=== PATIENT | male | born 1955 | race Caucasian/White ===

== ENCOUNTER 2020-10-06 14:49 | Outpatient (CLI) | payer MEDICARE, SELFPAY ==
[2020-10-06 18:05] LABS: Magnesium 0.5 mg/dL (1.7-2.3)
== END 2020-10-06 14:50 | disposition home or self-care (01) ==
LOC: LAB 14:55
PROVIDERS: Visit Provider Family Medicine
DX: E83.51 Hypocalcemia (principal)
CPT/HCPCS: 83735

== ENCOUNTER 2020-10-06 16:14 | Inpatient (IN) | payer MEDICARE, SELFPAY ==
[2020-10-06 16:22] VITALS: BP 135/73; PULSE 86; RESP 18; TEMP 36.6; O2SAT 98; BMI 33.5
[2020-10-06 17:03] LABS: Add Urine Microscopic? NO; Charge for UA Resulting for Rev
[2020-10-06 17:11] LABS: Protein Urine Neg (Negative); Urine Appearance Clear (CLEAR); Urine Color Yellow (Yellow); pH Urine 5 (5-7)
[2020-10-06 17:12] LABS: Bilirubin Urine Neg (Negative); Blood Urine Neg (Negative); Glucose Urine UA 4+ (Normal); Ketones Urine Negative (Negative); Leukocyte Esterase Urine Negative (Negative); Nitrate Urine Negative (Negative); Urobilinogen Urine 1 mg/dL (Negative)
--- NOTE | 2020-10-06 17:17 | ECG_ITS ---
[facility] Test Date: 2020-10-06 Pat Name: Filiberto Rosen Department: Room: Gender: Male Special Police: : 1955 Requested By: John Glover I Order Number: [id number] Mary MD: Mitchell Villarreal M.D. Measurements Intervals [place] Rate: 74 P: 46 NV: 169 QRS: 5 QRSD: 91 T: 31 QT: 380 QTc: 423 Interpretive Statements SINUS RHYTHM SEPTAL MYOCARDIAL INFARCTION , PROBABLY OLD [40+ ms Q WAVE IN V1/V2] No previous ECG available for comparison Electronically Signed On 10-07-2020 0:49:08 CDT by Mitchell Villarreal M.D. [id number]
[2020-10-06 17:42] LABS: Basophils # 0.1 10^3/uL (0.0-0.1); Basophils % 1.2 %; Eosinophils # 0.2 10^3/uL (0.0-0.8); Hematocrit 40.1 % (42.0-52.0); Hemoglobin 13.3 g/dL (11.7-16.6); Lymphocytes # 1.6 10^3/uL (0.8-4.8); Lymphocytes % 27.4 %; Mean Corpuscular HGB Conc 33.2 g/dL (30.0-36.0); Mean Corpuscular Hemoglobin 30.2 pg (28.0-34.0); Mean Corpuscular Volume 90.9 fL (80-94); Mean Platelet Volume 11.2 fL (7.4-10.4); Monocytes # 0.4 10^3/uL (0.2-0.9); Monocytes % 7.2 %; Neutrophils # 3.49 10^3/uL (1.8-7.7); Nucleated Red Blood Cells % 0 %; Platelet Count 286 10^3/cmm (130-400); Red Blood Count 4.41 10^6/uL (4.1-5.3); Red Cell Distribution Width 14.3 % (12.1-15.1); White Blood Count 5.8 10^3/uL (4.0-10.0)
--- NOTE | 2020-10-06 18:47 | W.ED.GENADLT ---
HPI - General Adult General: Chief complaint: General Medical Stated complaint: abnormal labs Time Seen by Provider: 10/06/20 16:57 Source: patient Mode of arrival: ambulatory Limitations: no limitations History of Present Illness: HPI narrative: This is a 65 year old male who was sent to the ED by his PCP for hypocalcemia. The patient states that about a week ago he had routine lab work done and his calcium was very low. Calcium was repeated again and was still low so he was advised to be seen in the emergency department for evaluation. The patient is asymptomatic. He denies any muscle aches, muscle pain, weakness, chest pain, difficulty breathing. Review of Systems General: Reports: 10 or more systems reviewed and unremarkable except in HPI and below Physical Exam Const: COMMON NORMALS: no acute distress, average body habitus, patient oriented x3, no limitations, healthy appearing, alert and well nourished HENMT: COMMON NORMALS: normocephalic, atraumatic and moist oral mucous membranes HEAD & SCALP: normocephalic and atraumatic Neck/C-Spine: COMMON NORMALS: no meningeal signs and no JVD Resp: COMMON NORMALS: normal respiratory effort, No retractions, No use of accessory muscles, clear to auscultation bilaterally and percussion normal AUSCULTATION: clear to auscultation bilaterally PERCUSSION: percussion normal Cardio: COMMON NORMALS: no JVD, regular rate, regular rhythm, S1 normal heart sound present, S2 normal heart sound present, No gallops present (Cardio), No clicks present (Cardio), No murmurs present (Cardio), No rub (Cardio) and Peripheral pulses 2+ throughout RATE: regular rate RHYTHM: regular rhythm HEART SOUNDS: S1 normal heart sound present and S2 normal heart sound present PERIPHERAL PULSES: Peripheral pulses 2+ throughout GI: COMMON NORMALS: Normal to inspection, nondistended, normoactive bowel sounds present, Soft to palpation, non-tender, No hepatosplenomegaly present, no masses and no bruits PALPATION: Yes Soft to palpation and Yes No hepatosplenomegaly present Extremity: COMMON NORMALS: normal to inspection, full ROM, capillary refill normal, no calf tenderness and no pedal edema Neuro: COMMON NORMALS: patient oriented x3 SENSORIUM/ORIENTATION: Yes alert MENINGEAL SIGNS: Yes no meningeal signs Skin: COMMON NORMALS: no rashes or lesions noted, no wounds, turgor normal, no jaundice, no petechiae and no mottling GENERAL SKIN EXAM: no rashes or lesions noted and turgor normal Course Reevaluation(s): Reevaluation #1: Discussed his lab findings with him, also discussed my conversation with his primary care provider as well as the hospitalist. Advised that he would benefit from hospital admission overnight and replacement of his electrolytes. He voiced understanding and is in agreement with the plan. Time: 20:25 Consultations: Consultation #1: Discussed the patient Dr. Conn, his primary care provider. Discussed his magnesium levels as well as his calcium levels. We agreed that he probably will be safer for the patient to be admitted to the hospital overnight and have his magnesium especially and also his calcium replaced. The primary care provider is concerned because 3 months ago his calcium was 9.6 and there is no indication as to why he is calcium dropped so much in 3 months. Time: 20:15 Consultation #2: Discussed the patient with Dr. Mills, hospitalist and he kindly accepted the patient to his service. Time: 20:20 Vital Signs: Vital signs: Vital Signs Temperature 97.9 F 10/06/20 21:33 Pulse Rate 72 10/06/20 21:57 Respiratory Rate 15 10/06/20 21:57 Blood Pressure 125/62 10/06/20 21:57 Pulse Oximetry 94 10/06/20 21:57 MDM - General Adult MDM Narrative: Medical decision making narrative: 65-year-old male with severe hypomagnesemia as well as hypocalcemia. Etiology is undetermined at this time. He is started on replacement of both and admitted to the hospital for an overnight stay for further replenishing of electrolytes and management of his symptoms. He is asymptomatic, has normal vital signs in the emergency department and has a normal EKG. Medical Records: Attestation: I reviewed the patient's medical records. Lab Data: Attestation: I reviewed the patient's lab results. Labs: Lab Results 10/06/20 10/06/20 10/06/20 Range/Units 16:45 17:30 17:30 WBC 5.8 (4.0-10.0) 10^3/ uL RBC 4.41 (4.1-5.3) 10^6/u L Hgb 13.3 (11.7-16.6) g/dL Hct 40.1 L (42.0-52.0) % MCV 90.9 (80-94) fL MCH 30.2 (28.0-34.0) pg MCHC 33.2 (30.0-36.0) g/dL RDW 14.3 (12.1-15.1) % Plt Count 286 (130-400) 10^3/c mm MPV 11.2 H (7.4-10.4) fL Neut % (Auto) 60.0 % Lymph % (Auto) 27.4 % [place] % (Auto) 7.2 % Eos % (Auto) 4.0 % Baso % (Auto) 1.2 % Neut # (Auto) 3.49 (1.8-7.7) 10^3/u L Lymph # (Auto) 1.6 (0.8-4.8) 10^3/u L [place] # (Auto) 0.4 (0.2-0.9) 10^3/u L Eos # (Auto) 0.2 (0.0-0.8) 10^3/u L Baso # (Auto) 0.1 (0.0-0.1) 10^3/u L Nucleated RBC % (a uto) 0 % Nucleated RBCs # 0.0 /100WBC Sodium Cancelled Potassium Cancelled Chloride Cancelled Carbon Dioxide Cancelled Anion Gap Cancelled BUN Cancelled Creatinine Cancelled GFR Calculation Cancelled Glucose Cancelled Calculated Osmolal ity Cancelled Calcium Cancelled Ionized Calcium Me as Cancelled Total Bilirubin Cancelled AST Cancelled ALT Cancelled Alkaline Phosphata se Cancelled Total Protein Cancelled Albumin Cancelled Globulin Cancelled PTH Intact (15-65) pg/mL Calcium (PTH Intac t) (8.5-10.5) mg/dL Urine Color Yellow (Yellow) Urine Appearance Clear (CLEAR) Urine pH 5 (5-7) Ur Specific Gravit y 1.010 (1.005-1.030) Urine Protein Neg (Negative) Urine Glucose (UA) 4+ H (Normal) Urine Ketones Negative (Negative) Urine Blood Neg (Negative) Urine Nitrate Negative (Negative) Urine Bilirubin Neg (Negative) Urine Urobilinogen 1 H (Negative) mg/dL Ur Leukocyte Venessa ase Negative (Negative) 10/06/20 10/06/2021 Range/Units 18:00 18:00 19:15 WBC (4.0-10.0) 10^3/ uL RBC (4.1-5.3) 10^6/u L Hgb (11.7-16.6) g/dL Hct (42.0-52.0) % MCV (80-94) fL MCH (28.0-34.0) pg MCHC (30.0-36.0) g/dL RDW (12.1-15.1) % Plt Count (130-400) 10^3/c mm MPV (7.4-10.4) fL Neut % (Auto) % Lymph % (Auto) % [place] % (Auto) % Eos % (Auto) % Baso % (Auto) % Neut # (Auto) (1.8-7.7) 10^3/u L Lymph # (Auto) (0.8-4.8) 10^3/u L [place] # (Auto) (0.2-0.9) 10^3/u L Eos # (Auto) (0.0-0.8) 10^3/u L Baso # (Auto) (0.0-0.1) 10^3/u L Nucleated RBC % (a uto) % Nucleated RBCs # /100WBC Sodium 143 Potassium 4.1 Chloride 102 Carbon Dioxide 31 H Anion Gap 14.1 BUN 13 Creatinine 1.2 GFR Calculation 60.4 L Glucose 57 L Calculated Osmolal ity 294 Calcium 6.1 L Ionized Calcium Me as 0.8 L Total Bilirubin 0.4 AST 35 ALT 25 Alkaline Phosphata se 78 Total Protein 8.6 Albumin 4.0 Globulin 4.6 PTH Intact 43.6 (15-65) pg/mL Calcium (PTH Intac t) 6.5 L (8.5-10.5) mg/dL Urine Color (Yellow) Urine Appearance (CLEAR) Urine pH (5-7) Ur Specific Gravit y (1.005-1.030) Urine Protein (Negative) Urine Glucose (UA) (Normal) Urine Ketones (Negative) Urine Blood (Negative) Urine Nitrate (Negative) Urine Bilirubin (Negative) Urine Urobilinogen (Negative) mg/dL Ur Leukocyte Venessa ase (Negative) EKG Data^: EKG 1: Attestation: I personally reviewed and interpreted this EKG as follows: EKG interpretation date: 10/06/20 EKG interpretation time: 19:04 Prior EKG tracings: not available for review Interpretation: Sinus rhythm. Heart rate [address] changes. QTC not prolonged. Critical Care Time Critical Care Time: Critical Care Time: Yes Total Critical Care Time: 30 Attestation: This case had a high probability of a clinically significant, sudden, or life threatening deterioration of this patient's condition which required my full and direct attention, intervention and personal management. Discharge Plan Discharge Patient Disposition: Placed in Observation Admit Provider: Pierre Mills Clinical Impression: Hypocalcemia, Hypomagnesemia Coding Level of Care Code ED Retail Associate for Chg Fwd Exam Comprehensive
[2020-10-06 18:58] LABS: Calcium 6.5 mg/dL (8.5-10.5); Parathyroid Hormone 43.6 pg/mL (15-65)
[2020-10-06 19:05] LABS: Alanine Aminotransferase 25 U/L (0-41); Alkaline Phosphatase 78 IU/L (40-130); Anion Gap 14.1 (5-19); Aspartate Amino Transferase 35 U/L (0-40); Blood Urea Nitrogen 13 mg/dL (8-23); Calcium 6.1 mg/dL (8.5-10.5); Carbon Dioxide 31 mmol/L (22-29); Chloride 102 mmol/L (98-107); Globulin 4.6 g/dL (1.3-4.6); Glomerular Filtration Rate 60.4 mL/min (90-130); Glucose 57 mg/dL (65-115); Osmolality Calculated 294 mOsm/kg (285-295); Potassium 4.1 mmol/L (3.5-5.1); Sodium 143 mmol/L (136-145); Total Bilirubin 0.4 mg/dL (0.15-1.2); Total Protein 8.6 g/dL (6.6-8.7)
[2020-10-06 19:23] LABS: Ionized Calcium 0.8 mmol/L (1.1-1.4)
[2020-10-06] MEDS: magnesium sulfate premix 2 GM/50 ML PIGGYBACK IV (19:48)
[2020-10-06 19:55] VITALS: PULSE 75; RESP 17
--- NOTE | 2020-10-06 20:35 | ECG_ITS ---
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 Measurements Intervals [place] Rate: 73 P: 44 [place]: 165 QRS: 9 QRSD: 86 T: 6 QT: 391 QTc: 431 Interpretive Statements SINUS RHYTHM Compared to ECG 10/06/2020 19:03:58 Myocardial infarct finding no longer present Electronically Signed On 10-08-2020 6:56:57 CDT by Digna Dennis M.D. [id number] f
[2020-10-06 21:02] VITALS: BP 125/62; PULSE 72; RESP 15; O2SAT 94
[2020-10-06 21:33] VITALS: BP 151/79; PULSE 74; RESP 17; TEMP 36.6; O2SAT 95
--- NOTE | 2020-10-06 21:41 | PM.HP ---
Providers/Chief Complaint Admitting Physician: Pierre Mills Primary Care Provider: Sen Brannon MD Chief Complaint: abnormal labs History of Present Illness Filiberto Rosen is a 65 year old male with past medical history of hypertension, diabetes, dyslipidemia who was found to have hypocalcemia during most recent regular checkup and was sent by his PCP to emergency room for IV replacement. The patient denies any active complaints. Denies any weakness or dizziness, denies lightheadedness, convulsions, muscle twitches or weakness, chest pain or palpitations, nausea or vomiting, diarrhea. His calcium level and magnesium level were significantly decreased. Please see his labs. He received 1 g of calcium gluconate and 2 g of magnesium sulfate in the emergency room. Being admitted for observation. Review of Systems General: Reports: 10 or more systems reviewed and unremarkable except in HPI and below Medications/Allergies Home Medications Medication Instructions Recorded Confirmed Last Taken Type Fish Oil 3,000 mg PO BID@1000,2200 10/06/20 10/06/20 10/06/20 History amlodipine 5 mg PO DAILY@1000 10/06/20 10/06/20 10/06/20 History aspirin [Aspir-81] 81 mg PO DAILY@1000 10/06/20 10/06/20 10/06/20 History atorvastatin 80 mg PO BEDTIME@2230 10/06/20 10/06/20 10/05/20 History carvedilol 12.5 mg PO DAILY@1000 10/06/20 10/06/20 10/06/20 History dapagliflozin [Farxiga] 10 mg PO DAILY@1000 10/06/20 10/06/20 10/06/20 History ergocalciferol (vitamin D2) 1,250 mcg PO DAILY@1000 10/06/20 10/06/20 10/06/20 History gemfibrozil 600 mg PO BID@1000,2230 10/06/20 10/06/20 10/06/20 History hydrochlorothiazide 12.5 mg PO DAILY@1000 10/06/20 10/06/20 10/06/20 History insulin glargine [Lantus Solostar 70 unit SUBCUT BID@1000,2200 10/06/20 10/06/20 10/06/20 History U-100 Insulin] insulin lispro [Humalog KwikPen See Rx Instructions .ROUTE .COMPLEX 10/06/20 10/06/20 10/06/20 History Insulin] liraglutide [Victoza 3-Abdulkadir] See Rx Instructions .ROUTE .COMPLEX 10/06/20 10/06/20 10/05/20 History loratadine [Claritin] 10 mg PO DAILY@1000 10/06/20 10/06/20 10/06/20 History omeprazole 40 mg PO DAILY@1000 10/06/20 10/06/20 10/06/20 History potassium chloride 20 meq PO BID@1000,2200 10/06/20 10/06/20 10/06/20 History valsartan-hydrochlorothiazide 1 tab PO DAILY@1000 10/06/20 10/06/20 10/06/20 History Allergies Allergy/AdvReac Type Severity Reaction Status Date / Time No Known Allergies Allergy Verified 10/06/20 16:25 Vitals/I&O/Wt Last Vital Signs Temp 97.8 F 10/06/20 16:22 Pulse 72 10/06/20 21:02 Resp 15 10/06/20 21:02 BP 125/62 10/06/20 21:02 Pulse Ox 94 10/06/20 21:02 Weight last 48 hrs Weight 108.862 kg Physical Exam Narrative: EXAM NARRATIVE: Awake alert oriented. No acute distress. Mood and affect are appropriate. Responses are adequate. Skin is warm and dry. Moist extremities Eyes PERRL, extraocular muscles are intact Neck supple. No JVD Lungs clear to auscultation bilaterally. No wheezes or crackles Heart S1, S2, regular Abdomen soft, nontender, bowel sounds are present Extremities no edema sinus or calf tenderness bilaterally. No tremors or muscle twitches. Neuro. No focal deficits. Normal speech. Cranial nerves II through XII are grossly intact. Data : 10/06/20 17:30 10/06/20 18:00 A&P Additional A&P Information 65-year-old male with past medical history of hypertension, diabetes, dyslipidemia who is sent by his PCP for replacement of calcium which was found to be very low by the PCP. In emergency room he also has hypomagnesemia. A symptomatic. Hypocalcemia and hypomagnesemia. Replaced in the emergency room. We will continue monitoring him. We will recheck it in the morning. Will replace more if needed. We will hold his home diuretics and PPI. We will check his TSH, phosphorus level, vitamin D level. Hypoglycemia. Mild a symptomatic. Continue close monitoring. We will resume his home medications tomorrow. We will check his A1c level. DVT prophylaxis. Teds and SCDs. No anticoagulation because he is ambulating freely in the room. Hypertension. Well-controlled. Continue current management. CODE STATUS. He wants to be full code. Attestations Medical Necessity Statement*: Observation Coding Level of Care Code Acute Melter Supervisor Electric Arc Furnace for Stefan Soriano
[2020-10-06 21:57] VITALS: BP 125/62; PULSE 72; RESP 15; O2SAT 94
[2020-10-06 22:17] LABS: Glucose Point of Care 123 mg/dL (70-110)
[2020-10-06] MEDS: gemfibrozil 600 mg Tablet PO (22:56)
[2020-10-06] MEDS: omega-3 fatty acids 1,000 mg Capsule 3000 MG PO (22:56)
[2020-10-06 23:50] VITALS: BP 128/68; PULSE 81; RESP 16; TEMP 36.6; O2SAT 96
--- NOTE | 2020-10-07 | CT_ITS ---
WS: [id number] CT LUMBAR SPINE TECHNIQUE: Noncontrast CT of the lumbar spine with coronal and sagittal reformatted images. CLINICAL INFORMATION: OSTEOBLASTIC COMPARISON: None. DLP: 2504.[address] scans at [facility] use at least one of these dose optimization techniques: automat ed exposure control; mA and/or kV adjustment per patient size (includes targeted exams where dose is matched to clinical indication); or iterative reconstruction. FINDINGS: Mild lumbar curve. No acute compression. Disc osteophyte complex worse L5-S1 with moderate central c anal stenosis. Impingement on the left S1 nerve root. L1-L2: Normal. L2-L3: Mild disc bulging with mild central canal stenosis. Small central protrusion. Mild bilateral f oraminal narrowing. Moderate facet arthropathy. L3-L4: Mild annular bulging with mild central canal stenosis. Narrowing of the subarticular recess bi laterally. Mild bilateral foraminal narrowing. Moderate facet arthropathy. L4-L5: Mild disc bulging with mild central canal stenosis. Moderate facet arthropathy. Mild left and moderate right bony foraminal narrowing. Moderate facet arthropathy. L5-S1: Left pericentral disc osteophyte protrusion with moderate central canal stenosis. Impingement on the traversing left greater than right S1 nerve roots. Severe bilateral foraminal narrowing. Moder ate facet arthropathy. Visualized pelvic bony structures: Normal. Paravertebral soft tissues: Normal. CT/CT lumbar spine wo con* [id number] IMPRESSION: 1. Left pericentral disc osteophyte protrusion L5-S1 impinges the traversing l eft greater than right S1 nerve roots. Moderate central canal stenosis. 2. Moderate to severe bilateral L5-S1 bony foraminal narrowing. 3. Mild central canal stenosis L2-L3 L3-L4 and L4-L5. 4. Moderate right L4-5 bony foraminal narrowing.
[2020-10-07 00:49] LABS: 25 Hydroxy Vitamin D 57 ng/mL (30-100); Phosphorus 3.4 mg/dL (2.5-4.5)
[2020-10-07 04:00] VITALS: BP 129/71; PULSE 74; RESP 17; TEMP 36.8; O2SAT 95
[2020-10-07 04:56] LABS: Ionized Calcium 0.8 mmol/L (1.1-1.4)
[2020-10-07 06:31] LABS: Glucose Point of Care 60 mg/dL (70-110)
[2020-10-07 06:49] LABS: Estmated Average Glucose 103; Hemoglobin A1C 5.2 % (4.0-6.0)
[2020-10-07 06:50] LABS: Blood Urea Nitrogen 14 mg/dL (8-23); Calcium 6.5 mg/dL (8.5-10.5); Carbon Dioxide 28 mmol/L (22-29); Chloride 101 mmol/L (98-107); Glomerular Filtration Rate 66.8 mL/min (90-130); Glucose 45 mg/dL (65-115); Osmolality Calculated 292 mOsm/kg (285-295); Phosphorus 4.1 mg/dL (2.5-4.5); Sodium 142 mmol/L (136-145); Thyroid Stimulating Hormone 1.48 uIU/mL (0.27-4.20)
[2020-10-07 07:19] LABS: Magnesium 0.9 mg/dL (1.7-2.3)
[2020-10-07 07:47] VITALS: BP 116/68; PULSE 86; RESP 18; TEMP 36.7; O2SAT 93
--- NOTE | 2020-10-07 09:24 | PC.CHAP ---
Pastoral Care Encounter/Spiritual Assessment Type of Contact [] Declined field research associate visit [] Patient/Family/Request visit [] Outpatient visit [] Follow-up visit [] Physician referral [] Code/Alert []x Routine visit [] Staff referral [] Actively dying [] Patient sleeping [] Family support [] [] Out of room [] Palliative care [] [] Receiving care in room [] Pre-surgical visit [] Trauma [] Long length of stay [] ICU visit [] Other: Relational/Emotional Strength [] Patient feels connected with others/family/visitors/staff [] Distress [] Loneliness/isolation [] Abandonment Spirituality of Patient [x] Person of [place] [] Attends Scientology of their [place] [] Believes in Prayer [] Reads Bible or Gnosticist materials [] There are Spiritual issues to be addressed Tower Watchman Interventions [x] Prayer [x] Active listening [x] Non-anxious presence [] Spiritual/emotional support [] Crisis/trauma care [] Spiritual counseling [] Bereavement support [] Provided bereavement packet [] Provided Bible/devotional materials [] Provided toy/stuffed animal, coloring book to patient or family member [] Provided Communion [] Anointing/[place] [] Salvation [] Completed spiritual assessment [] Other: Impact on Illness or Injury [] Angry [] Fearful [] Anxious [] Often cries [] Exhaustion [] Unable to work [] Unable to attend jewish [] Unable to walk/stand [] Unable to read [] Unable to drive [] Unable to eat/drink [] Unable to sleep [] Unable to be with family [] Patient intubated [] Other: Summary patient has bad head ache feelsl like hes been ran over buy a truck Time spent with patient 10 min
[2020-10-07] MEDS: amlodipine 5 mg Tablet PO (10:01)
[2020-10-07] MEDS: omega-3 fatty acids 1,000 mg Capsule 3000 MG PO ×2 (10:01→21:31)
[2020-10-07] MEDS: aspirin 81 mg EC Tablet PO (10:01)
[2020-10-07] MEDS: loratadine 10 mg Tablet PO (10:01)
[2020-10-07] MEDS: gemfibrozil 600 mg Tablet PO ×2 (10:01→21:31)
[2020-10-07] MEDS: carvedilol 12.5 mg Tablet PO (10:01)
[2020-10-07 11:03] LABS: Glucose Point of Care 150 mg/dL (70-110)
--- NOTE | 2020-10-07 11:48 | CT_ITS ---
WS: [id number] CT ABDOMEN PELVIS TECHNIQUE: Contrast-enhanced CT of the abdomen and pelvis with coronal and sagittal reformatted image s. CLINICAL INFORMATION: possible adrenal mass COMPARISON: CT 5 14,015 DLP: 2536.[address] scans at [facility] use at least one of these dose optimization techniques: automat ed exposure control; mA and/or kV adjustment per patient size (includes targeted exams where dose is matched to clinical indication); or iterative reconstruction. FINDINGS: Mild diffuse fatty infiltration liver. Normal portal vein and splenic vein. Normal GE junction. Rani l spleen. Lung bases are well aerated. Fatty atrophy of the pancreas. Adrenal glands are normal. Norm al renal parenchymal enhancement. Renal cortical atrophy. No hydronephrosis. Left renal cyst measurin g 11 mm. Normal caliber abdominal aorta. Aortic calcification. Heterogeneous nodular markedly enlarged prostate with indentation on the bladder. Prostate measures a pproximately 5.6 x 5.3 CM. Recommend correlation PSA. Thickening of the seminal vesicles bilaterally. Mild bladder wall thickening. No pelvic lymphadenopathy. No abdominal or inguinal lymphadenopathy. Fat-containing umbilical hernia. No evidence of small large bowel obstruction. CT/CT abdomen pelvis w con* [id number] IMPRESSION: 1. Markedly enlarged heterogeneous nodular prostate measuring 5.6 x 5.3 cm wit h indentation on the bladder suspicious for neoplasia. Recommend correlation PS A. Associated thickening of the seminal vesicles. 2. No abdominal, pelvic, or inguinal lymphadenopathy. 3. Both adrenal glands are normal. 4. Left renal cyst measuring 11 mm. 5. Diffuse fatty infiltration of the liver. 6. Normal caliber abdominal aorta.
[2020-10-07 11:50] VITALS: BP 119/74; PULSE 90; RESP 18; TEMP 36.9; O2SAT 95
--- NOTE | 2020-10-07 11:58 | P.PN_ITS ---
Subjective Subjective: Interval history: Admitted overnight. H&P labs noted. Patient hypoglycemic early in the morning today. Has remained afebrile hemodynamically stable saturating well on room air. Denies any nausea vomiting, headache. Patient sitting comfortably in bed during examination. Denies any nausea vomiting, headache. Vitals/I&O/Wt Last Vital Signs Temp 98.5 F 10/07/20 11:50 Pulse 90 10/07/20 11:50 Resp 18 10/07/20 11:50 BP 119/74 10/07/20 11:50 Pulse Ox 95 10/07/20 11:50 10/06/20 10/07/20 10/07/20 22:59 06:59 14:59 Intake Total 230 / 230 120 / 120 Balance 230 / 230 120 / 120 Weight last 48 hrs Weight 108.862 kg Physical Exam Narrative: EXAM NARRATIVE: Awake alert oriented. No acute distress. Mood and affect are appropriate. Responses are adequate. Skin is warm and dry. Moist extremities Eyes PERRL, extraocular muscles are intact Neck supple. No JVD Lungs clear to auscultation bilaterally. No wheezes or crackles Heart S1, S2, regular Abdomen soft, nontender, bowel sounds are present Extremities no edema sinus or calf tenderness bilaterally. No tremors or muscle twitches. Neuro. No focal deficits. Normal speech. Cranial nerves II through XII are grossly intact. Data : 10/06/20 17:30 10/07/20 04:25 A&P Assessment and plan (1) Hypocalcemia: Status: Acute (2) Hypomagnesemia: Status: Acute (3) Hyperlipidemia: Status: Acute (4) Hypoglycemia: Status: Acute (5) Hypokalemia: Status: Acute (6) Type 2 diabetes mellitus: Status: Acute (7) Hypertension: Status: Acute (8) COPD (chronic obstructive pulmonary disease): Status: Acute Additional A&P Information 65-year-old male with past medical history of hypertension, diabetes, dyslipidemia who is sent by his PCP for replacement of calcium which was found to be very low by the PCP. In emergency room he also has hypomagnesemia. A symptomatic. Hypocalcemia and hypomagnesemia: Continues to remain persistently low. Albumin level normal. Low PTH Replete magnesium 4 g IV, calcium 2 g slowly. Given patient having multiple episodes of hypoglycemia overnight will do CT abdomen pelvis with contrast to rule out adrenal mass or any other signs of cancer. Check PSA. Further etiologies of hypercalcemia with hyperparathyroidism we will check ESR, CRP, cortisol level, copper level, ferritin, TIBC, lipase, iron level. Continue to hold off on home diuretics and PPIs. TSH and phosphorus levels within normal limits. Vitamin D levels awaited. Hypoglycemia with history of type 1 diabetes mellitus: HbA1c 5.2. At home patient is on Victoza, glargine 70 twice daily, lispro. For now check glucose before meals and at bedtime. Sliding scale at mild protocol. Hold off on Victoza and glargine. Hypertension: Goal blood pressure less than 140/90 mmHg. Continue with amlodipine 5 mg. If needed will go up on the medications for now blood pressures have been stable. Full code. Regular diet. Heparin for DVT prophylaxis. As patient continues to require hypoglycemia, hypokalemia, hypocalcemic and hypomagnesia will change admission to inpatient as patient is requiring multiple IV treatment. Attestations Medical Necessity Statement*: Patient requires further hospitalization for management of severe hypocalcemia, hypomagnesemia, hypoglycemia requiring multiple IV medications Time Spent in Patient Care: Greater than 35 minutes (>than 50% of time spent in counselling and/or direct pt care on unit) . Coding Level of Care Code Acute Cardiac Monitor for Chg Fwd Diagnoses Hypocalcemia E83.51 Hypomagnesemia E83.42 Hyperlipidemia E78.5 Hypoglycemia E16.2 Hypokalemia E87.6 Type 2 diabetes mellitus E11.9 Hypertension I10 COPD (chronic obstructive pulmonary disease) J44.9
[2020-10-07] MEDS: magnesium sulfate premix 4 GM/100 ML PREMIX IV (12:25)
[2020-10-07 12:39] LABS: C Reactive Protein 13.2 mg/L (0.0-4.9); Ferritin 332 ng/mL (30-400); Iron 60 ug/dL (59-158); Lipase 19 U/L (13-60); Percent Saturation 21.2 % (20-50); Total Iron Binding Capacity 283 mcg/dl; Unsaturated Iron Binding 223 ug/dL (112-347)
[2020-10-07] MEDS: iohexol 300 mg/mL 100 mL Btl IV (12:41)
[2020-10-07 12:54] LABS: HIV 1 & 2 Antibody Non-Reactive (Non-Reactiv); HIV 1 & 2 Antigen Non-Reactive (Non-Reactiv)
[2020-10-07 13:33] LABS: Erythrocyte Sedimentation Rate 42 mm/hr (0-10)
[2020-10-07 14:58] LABS: Cortisol Random 15.97 ug/dL (2.47-19.5)
[2020-10-07 15:59] VITALS: BP 132/73; PULSE 69; RESP 18; TEMP 36.8; O2SAT 96
[2020-10-07 17:07] LABS: Glucose Point of Care 170 mg/dL (70-110)
[2020-10-07 19:16] VITALS: BP 133/71; PULSE 80; RESP 18; TEMP 36.7; O2SAT 95
[2020-10-07 20:23] LABS: Glucose Point of Care 163 mg/dL (70-110)
[2020-10-07] MEDS: atorvastatin 40 mg Tablet 80 MG PO (21:33)
[2020-10-07 21:39] LABS: Calcium 7.2 mg/dL (8.5-10.5); Magnesium 1.9 mg/dL (1.7-2.3); Phosphorus 2.9 mg/dL (2.5-4.5); Potassium 3.5 mmol/L (3.5-5.1)
[2020-10-07 23:45] VITALS: BP 129/69; PULSE 81; RESP 16; TEMP 36.8; O2SAT 94
[2020-10-08 03:50] VITALS: BP 123/67; PULSE 74; RESP 18; TEMP 36.9; O2SAT 94
[2020-10-08 06:44] LABS: Glucose Point of Care 160 mg/dL (70-110)
[2020-10-08 06:44] LABS: Chol HDL Ratio 5.05 mg/dL (1.0-5.00); Cholesterol 101 mg/dL (0-200); HDL Cholesterol 20 mg/dL (60-100); LDL Cholesterol Calculated 55 mg/dL (50-129); Triglycerides 130 mg/dL (0-150); VLDL Cholestrol Calculation 26 mg/dL (0-30)
[2020-10-08 07:24] VITALS: BP 124/69; PULSE 85; RESP 18; TEMP 36.9; O2SAT 92
[2020-10-08] MEDS: gemfibrozil 600 mg Tablet PO (09:05)
[2020-10-08] MEDS: carvedilol 12.5 mg Tablet PO (09:05)
[2020-10-08] MEDS: loratadine 10 mg Tablet PO (09:05)
[2020-10-08] MEDS: aspirin 81 mg EC Tablet PO (09:05)
[2020-10-08] MEDS: ergocalciferol (vitamin D2) 50,000 Unit Capsule 50000 UNIT PO (09:05)
[2020-10-08] MEDS: omega-3 fatty acids 1,000 mg Capsule 3000 MG PO (09:05)
[2020-10-08] MEDS: amlodipine 5 mg Tablet PO (09:06)
[2020-10-08 09:54] LABS: Alanine Aminotransferase 23 U/L (0-41); Alkaline Phosphatase 73 IU/L (40-130); Anion Gap 17.4 (5-19); Aspartate Amino Transferase 27 U/L (0-40); Blood Urea Nitrogen 15 mg/dL (8-23); Calcium 6.6 mg/dL (8.5-10.5); Carbon Dioxide 29 mmol/L (22-29); Chloride 100 mmol/L (98-107); Globulin 3.8 g/dL (1.3-4.6); Glomerular Filtration Rate 66.8 mL/min (90-130); Glucose 44 mg/dL (65-115); Osmolality Calculated 294 mOsm/kg (285-295); Phosphorus 4.5 mg/dL (2.5-4.5); Potassium 3.4 mmol/L (3.5-5.1); Sodium 143 mmol/L (136-145); Total Bilirubin 0.3 mg/dL (0.15-1.2); Total Protein 7.8 g/dL (6.6-8.7)
[2020-10-08 11:30] LABS: Glucose Point of Care 172 mg/dL (70-110)
[2020-10-08] MEDS: magnesium sulfate premix 2 GM/50 ML PIGGYBACK IV (11:34)
[2020-10-08 11:36] VITALS: BP 152/84; PULSE 84; RESP 16; TEMP 37; O2SAT 96
--- NOTE | 2020-10-08 11:46 | PM.DCS ---
Discharge Providers Date of Admission: 10/07/20 12:08 Date of Discharge: October 08, 2020 Attending Provider at Admission: Pierre Mills Attending Provider at Discharge: Sterling Landry MD Primary Care Provider: Sen Brannon MD Diagnoses at Discharge Discharge Diagnosis (1) Hypocalcemia: Status: Acute (2) Hypomagnesemia: Status: Acute (3) Hyperlipidemia: Status: Acute (4) Hypoglycemia: Status: Acute (5) Hypokalemia: Status: Acute (6) Type 2 diabetes mellitus: Status: Acute (7) Hypertension: Status: Acute (8) COPD (chronic obstructive pulmonary disease): Status: Acute Reason for Visit Reason for Visit: abnormal labs Hospital Course Hospital Course Filiberto Rosen is a 65 year old male with past medical history of hypertension, diabetes, dyslipidemia who was found to have hypocalcemia during most recent regular checkup and was sent by his PCP to emergency room for IV replacement. The patient denies any active complaints. Denies any weakness or dizziness, denies lightheadedness, convulsions, muscle twitches or weakness, chest pain or palpitations, nausea or vomiting, diarrhea. On admission his calcium levels were 6.1 and magnesium of 0.5. He is new to the hospital for replacement of both calcium and magnesium. During hospitalization he was found to have multiple episodes of hypoglycemia with blood sugar going down to 40s requiring multiple episodes of IV dextrose. Patient stated on further investigation that he has had blood sugar levels going down to 60s multiple times during the last 1 month. For work-up of hypocalcemia and hypomagnesemia PTH was checked and that was also found to be on the lower side. For this reason there is a concern for osteoblastic malignancy for which he underwent CT abdomen pelvis with contrast and PSA was checked P. PSA was found to be on the higher side. CT chest abdomen pelvis showed markedly enlarged heterogeneous nodular prostate measuring 5.6 to 5.3 cm with indentation of the bladder suspicion of neoplasia. Patient has been made aware of possibility of malignancy and will be following up with Dr. Shi as an outpatient coming week as he is not available this week for prostate biopsy. Patient will follow up with his primary care provider within next 3 to 4 days for repeat labs and is being discharged on oral calcium and magnesium supplementation. For hypoglycemia multiple antiglycemic's was stopped. Going forward patient is to take only Humalog premeals. He has been made aware of sliding scale. He is to stop his Lantus, Victoza, dapagliflozin for now. During hospitalization patient required only 10 units of insulin over 36 to 48 hours. Physical Exam Narrative: EXAM NARRATIVE: Awake alert oriented. No acute distress. Mood and affect are appropriate. Responses are adequate. Skin is warm and dry. Moist extremities Eyes PERRL, extraocular muscles are intact Neck supple. No JVD Lungs clear to auscultation bilaterally. No wheezes or crackles Heart S1, S2, regular Abdomen soft, nontender, bowel sounds are present Extremities no edema sinus or calf tenderness bilaterally. No tremors or muscle twitches. Neuro. No focal deficits. Normal speech. Cranial nerves II through XII are grossly intact. Discharge Data Data Completed and Pending: Completed Studies During Hospitalization Category Date Time Status CT abdomen pelvis w con* [id number] Rout ine Cat Scan 10/07/20 11:[address] lumbar spine w o con* [id number] Routi ne Cat Scan 10/07/20 Completed Pending at discharge Category Date Time Status Copper Level Rout ine Lab 10/07/20 15:19 Received [facility] Profile R outine Lab 10/07/20 13:43 Received PTH Related Pepti de (Protein) Routi ne Lab 10/07/20 13:43 Received Plasma Renin Acti vity LC/MS/MS Rout ine Lab 10/07/20 13:43 Received Vitamin D 1,25 Di hydroxy Routine Lab 10/06/20 18:00 Received Labs from last 24 hours 10/08/20 10/08/20 10/08/20 11:14 06:40 04:25 ESR Sodium 143 Potassium 3.4 L Chloride 100 Carbon Dioxide 29 Anion Gap 17.4 BUN 15 Creatinine 1.1 GFR Calculation 66.8 L Glucose 44 L POC Glucose 172 H 160 H Calculated Osmolal ity 294 Calcium 6.6 L Phosphorus 4.5 D Magnesium 1.0 L Iron TIBC % Saturation Unsat Iron Binding Ferritin Total Bilirubin 0.3 AST 27 ALT 23 Alkaline Phosphata se 73 C-Reactive Protein Total Protein 7.8 Albumin 4.0 Globulin 3.8 Triglycerides Cholesterol LDL Cholesterol, C alc Total VLDL Cholest jose juan HDL Cholesterol Cholesterol/HDL Ra dorian Lipase Prostate Specific Ag Renin Activity PTH Related Protei n Random Cortisol Copper SS-A/Ro IgG Antibo dy SS-B/La IgG Antibo dy Anti-nRNP/Sm IgG A b Scl-70 Scleroderma Ab HIV 1&2 Ab & HIV 1 Ag HIV 1&2 Antibody 10/08/20 10/07/20 10/07/20 04:25 21:10 20:16 ESR Sodium Potassium 3.5 Chloride Carbon Dioxide Anion Gap BUN Creatinine GFR Calculation Glucose POC Glucose 163 H Calculated Osmolal ity Calcium 7.2 L Phosphorus 2.9 Magnesium 1.9 Iron TIBC % Saturation Unsat Iron Binding Ferritin Total Bilirubin AST ALT Alkaline Phosphata se C-Reactive Protein Total Protein Albumin Globulin Triglycerides 130 Cholesterol 101 LDL Cholesterol, C alc 55 Total VLDL Cholest jose juan 26 HDL Cholesterol 20 L Cholesterol/HDL Ra dorian 5.05 H Lipase Prostate Specific Ag Renin Activity PTH Related Protei n Random Cortisol Copper SS-A/Ro IgG Antibo dy SS-B/La IgG Antibo dy Anti-nRNP/Sm IgG A b Scl-70 Scleroderma Ab HIV 1&2 Ab & HIV 1 Ag HIV 1&2 Antibody 10/07/20 10/07/20 10/07/20 19:11 16:59 15:19 ESR Sodium Potassium Cancelled Chloride Carbon Dioxide Anion Gap BUN Creatinine GFR Calculation Glucose POC Glucose 170 H Calculated Osmolal ity Calcium Cancelled Phosphorus Cancelled Magnesium Cancelled Iron TIBC % Saturation Unsat Iron Binding Ferritin Total Bilirubin AST ALT Alkaline Phosphata se C-Reactive Protein Total Protein Albumin Globulin Triglycerides Cholesterol LDL Cholesterol, C alc Total VLDL Cholest jose juan HDL Cholesterol Cholesterol/HDL Ra dorian Lipase Prostate Specific Ag Renin Activity PTH Related Protei n Random Cortisol Copper Pending SS-A/Ro IgG Antibo dy SS-B/La IgG Antibo dy Anti-nRNP/Sm IgG A b Scl-70 Scleroderma Ab HIV 1&2 Ab & HIV 1 Ag HIV 1&2 Antibody 10/07/20 10/07/20 10/07/20 13:43 13:43 13:43 ESR Sodium Potassium Chloride Carbon Dioxide Anion Gap BUN Creatinine GFR Calculation Glucose POC Glucose Calculated Osmolal ity Calcium Phosphorus Magnesium Iron TIBC % Saturation Unsat Iron Binding Ferritin Total Bilirubin AST ALT Alkaline Phosphata se C-Reactive Protein Total Protein Albumin Globulin Triglycerides Cholesterol LDL Cholesterol, C alc Total VLDL Cholest jose juan HDL Cholesterol Cholesterol/HDL Ra dorian Lipase Prostate Specific Ag Renin Activity Pending PTH Related Protei n Pending Random Cortisol Copper SS-A/Ro IgG Antibo dy Pending SS-B/La IgG Antibo dy Pending Anti-nRNP/Sm IgG A b Pending Scl-70 Scleroderma Ab Pending HIV 1&2 Ab & HIV 1 Ag HIV 1&2 Antibody 10/07/20 10/07/20 10/07/20 13:43 04:25 04:25 ESR Sodium Potassium Chloride Carbon Dioxide Anion Gap BUN Creatinine GFR Calculation Glucose POC Glucose Calculated Osmolal ity Calcium Phosphorus Magnesium Iron TIBC % Saturation Unsat Iron Binding Ferritin Total Bilirubin AST ALT Alkaline Phosphata se C-Reactive Protein Total Protein Albumin Globulin Triglycerides Cholesterol LDL Cholesterol, C alc Total VLDL Cholest jose juan HDL Cholesterol Cholesterol/HDL Ra dorian Lipase Prostate Specific Ag 5.520 H Renin Activity PTH Related Protei n Random Cortisol 15.97 Copper SS-A/Ro IgG Antibo dy SS-B/La IgG Antibo dy Anti-nRNP/Sm IgG A b Scl-70 Scleroderma Ab HIV 1&2 Ab & HIV 1 Ag Non-reactive HIV 1&2 Antibody Non-reactive 10/07/20 10/07/20 04:25 04:25 ESR 42 H Sodium Potassium Chloride Carbon Dioxide Anion Gap BUN Creatinine GFR Calculation Glucose POC Glucose Calculated Osmolal ity Calcium Phosphorus Magnesium Iron 60 TIBC 283 % Saturation 21.2 Unsat Iron Binding 223 Ferritin 332 Total Bilirubin AST ALT Alkaline Phosphata se C-Reactive Protein 13.2 H Total Protein Albumin Globulin Triglycerides Cholesterol LDL Cholesterol, C alc Total VLDL Cholest jose juan HDL Cholesterol Cholesterol/HDL Ra dorian Lipase 19 Prostate Specific Ag Renin Activity PTH Related Protei n Random Cortisol Copper SS-A/Ro IgG Antibo dy SS-B/La IgG Antibo dy Anti-nRNP/Sm IgG A b Scl-70 Scleroderma Ab HIV 1&2 Ab & HIV 1 Ag HIV 1&2 Antibody Addt'l Data from Hospital Stay: Laboratory Results WBC 5.8 10^3/uL (4.0- 10.0) 10/06/20 17:30 RBC 4.41 10^6/uL (4.1 -5.3) 10/06/20 17:30 Hgb 13.3 g/dL (11.7-1 6.6) 10/06/20 17:30 Hct 40.1 % (42.0-52.0 ) L 10/06/20 17:30 MCV 90.9 fL (80-94) 10/06/20 17:30 MCH 30.2 pg (28.0-34. 0) 10/06/20 17: MCHC 33.2 g/dL (30.0-3 6.0) 10/06/20 17: RDW 14.3 % (12.1-15.1 ) 10/06/20 17:30 Plt Count 286 10^3/cmm (130 -400) 10/06/20 17: MPV 11.2 fL (7.4-10.4 ) H 10/06/20 17:30 Neut % (Auto) 60.0 % 10/06/20 17: Lymph % (Auto) 27.4 % 10/06/20 17:30 Stanley % (Auto) 7.2 % 10/06/20 17: Eos % (Auto) 4.0 % 10/06/20 17: Baso % (Auto) 1.2 % 10/06/20: Neut # (Auto) 3.49 10^3/uL (1.8 -7.7) 10/06/20 17: Lymph # (Auto) 1.6 10^3/uL (0.8- 4.8) 10/06/20 17:30 Stanley # (Auto) 0.4 10^3/uL (0.2- 0.9) 10/06/20 17:30 Eos # (Auto) 0.2 10^3/uL (0.0- 0.8) 10/06/20 17: Baso # (Auto) 0.1 10^3/uL (0.0- 0.1) 10/06/20 17: Nucleated RBC % (a uto) 0 % 10/06/20 17: Nucleated RBCs # 0.0 /100WBC 10/06/20 17: ESR 42 mm/hr (0-10) H 10/07/20 04:25 Sodium 143 mmol/L (136-1 45) 10/08/20 04:25 Potassium 3.4 mmol/L (3.5-5 .1) L 10/08/20 04:25 Chloride 100 mmol/L (98-10 7) 10/08/20 04:25 Carbon Dioxide 29 mmol/L (22-29) 10/08/20 04:25 Anion Gap 17.4 (5-19) 10/08/20 04:25 BUN 15 mg/dL (8-23) 10/08/20 04:25 Creatinine 1.1 mg/dL (0.7-1. 2) 10/08/20 04:25 GFR Calculation 66.8 mL/min (90-1 30) L 10/08/20 04:25 Glucose 44 mg/dL (65-115) L 10/08/20 04:25 POC Glucose 172 mg/dL (70-110 ) H 10/08/20 11:14 Estimat Average Gl ucose 103 10/07/20 04:25 Hemoglobin A1c 5.2 % (4.0-6.0) 10/07/20 04:25 Calculated Osmolal ity 294 mOsm/kg (285- 295) 10/08/20 04:25 Calcium 6.6 mg/dL (8.5-10 .5) L 10/08/20 04:25 Ionized Calcium Me as 0.8 mmol/L (1.1-1 .4) L 10/07/20 04:25 Phosphorus 4.5 mg/dL (2.5-4. 5) D 10/08/20 04:25 Magnesium 1.0 mg/dL (1.7-2. 3) L 10/08/20 04:25 Iron 60 ug/dL (59-158) 10/07/20 04:25 TIBC 283 mcg/dl 10/07/20 04:25 % Saturation 21.2 % (20-50) 10/07/20 04:25 Unsat Iron Binding 223 ug/dL (112-34 7) 10/07/20 04:25 Ferritin 332 ng/mL (30-400 ) 10/07/20 04:25 Total Bilirubin 0.3 mg/dL (0.15-1 .2) 10/08/20 04:25 AST 27 U/L (0-40) 10/08/20 04:25 ALT 23 U/L (0-41) 10/08/20 04:25 Alkaline Phosphata se 73 IU/L (40-130) 10/08/20 04:25 C-Reactive Protein 13.2 mg/L (0.0-4. 9) H 10/07/20 04:25 Total Protein 7.8 g/dL (6.6-8.7 ) 10/08/20 04:25 Albumin 4.0 g/dL (3.5-5.2 ) 10/08/20 04:25 Globulin 3.8 g/dL (1.3-4.6 ) 10/08/20 04:25 Triglycerides 130 mg/dL (0-150) 10/08/20 04:25 Cholesterol 101 mg/dL (0-200) 10/08/20 04:25 LDL Cholesterol, C alc 55 mg/dL (50-129) 10/08/20 04:25 Total VLDL Cholest jose juan 26 mg/dL (0-30) 10/08/20 04:25 HDL Cholesterol 20 mg/dL (60-100) L 10/08/20 04:25 Cholesterol/HDL Ra dorian 5.05 mg/dL (1.0-5 .00) H 10/08/20 04:25 Lipase 19 U/L (13-60) 10/07/20 04:25 Prostate Specific Ag 5.520 ng/mL (0-4) H 10/07/20 04:25 25-OH Vitamin D To ramandeep 57 ng/mL (30-100) 10/06/20 18:00 TSH 1.48 uIU/mL (0.27 -4.20) 10/07/20 04:25 PTH Intact 43.6 pg/mL (15-65 ) 10/06/20 18:00 Calcium (PTH Intac t) 6.5 mg/dL (8.5-10 .5) L 10/06/20 18:00 Random Cortisol 15.97 ug/dL (2.47 -19.5) 10/07/20 13:43 Urine Color Yellow (Yellow) 10/06/20 16:45 Urine Appearance Clear (CLEAR) 10/06/20 16:45 Urine pH 5 (5-7) 10/06/20 16:45 Ur Specific Gravit y 1.010 (1.005-1.0 30) 10/06/20 16:45 Urine Protein Neg (Negative) 10/06/20 16:45 Urine Glucose (UA) 4+ (Normal) H 10/06/20 16:45 Urine Ketones Negative (Negati ve) 10/06/20 16:45 Urine Blood Neg (Negative) 10/06/20 16:45 Urine Nitrate Negative (Negati ve) 10/06/20 16:45 Urine Bilirubin Neg (Negative) 10/06/20 16:45 Urine Urobilinogen 1 mg/dL (Negative ) H 10/06/20 16:45 Ur Leukocyte Venessa ase Negative (Negati ve) 10/06/20 16:45 HIV 1&2 Ab & HIV 1 Ag Non-reactive (No n-Reactiv) 10/07/20 04:25 HIV 1&2 Antibody Non-reactive (No n-Reactiv) 10/07/20 04:[address] 10/07/20 00:00 IMPRESSION: 1. Left pericentral disc osteophyte protrusion L5-S1 impinges the traversing left greater than right S1 nerve roots. Moderate central canal stenosis. 2. Moderate to severe bilateral L5-S1 bony foraminal narrowing. 3. Mild central canal stenosis L2-L3 L3-L4 and L4-L5. 4. Moderate right L4-5 bony foraminal narrowing. Abdomen/Pelvis CT 10/07/20 11:48 IMPRESSION: 1. Markedly enlarged heterogeneous nodular prostate measuring 5.6 x 5.3 cm with indentation on the bladder suspicious for neoplasia. Recommend correlation PSA. Associated thickening of the seminal vesicles. 2. No abdominal, pelvic, or inguinal lymphadenopathy. 3. Both adrenal glands are normal. 4. Left renal cyst measuring 11 mm. 5. Diffuse fatty infiltration of the liver. 6. Normal caliber abdominal aorta. Vitals: Last Vital Signs Temp 98.6 F 10/08/20 11:36 Pulse 84 10/08/20 11:36 Resp 16 10/08/20 11:36 BP 152/84 10/08/20 11:36 Pulse Ox 96 10/08/20 11:36 Discharge Plan Discharge Patient Disposition: Home Condition: Stable Prescriptions: New calcium carbonate 500 mg calcium (1,250 mg) tablet,chewable 500 mg PO BID Qty: 30 RF: 0 magnesium oxide 400 mg magnesium tablet 400 mg PO BID Qty: 14 RF: 0 Continued atorvastatin 80 mg tablet 80 mg PO BEDTIME@2230 RF: 0 carvedilol 12.5 mg tablet 12.5 mg PO DAILY@1000 RF: 0 Aspir-81 81 mg Tablet,Delayed Release (Dr/Ec) 81 mg PO DAILY@1000 RF: 0 amlodipine 10 mg tablet 5 mg PO DAILY@1000 RF: 0 gemfibrozil 600 mg tablet 600 mg PO BID@1000,2230 RF: 0 ergocalciferol (vitamin D2) 1,250 mcg (50,000 unit) capsule 1,250 mcg PO DAILY@1000 RF: 0 Claritin 10 mg Tablet 10 mg PO DAILY@1000 RF: 0 Humalog KwikPen Insulin 100 unit/mL insulin pen See Rx Instructions .ROUTE .COMPLEX RF: 0 Victoza 3-Abdulkadir 0.6 mg/0.1 mL (18 mg/3 mL) pen injector See Rx Instructions .ROUTE .COMPLEX RF: 0 potassium chloride 20 mEq tablet extended release 20 meq PO BID@1000,2200 RF: 0 Fish Oil 3,000 mg PO BID@999,2200 RF: 0 omeprazole 40 mg capsule,delayed release(DR/EC) 40 mg PO DAILY@1000 RF: 0 Discontinued hydrochlorothiazide 12.5 mg capsule 12.5 mg PO DAILY@1000 RF: 0 valsartan-hydrochlorothiazide 320-25 mg tablet 1 tab PO DAILY@1000 RF: 0 Lantus Solostar U-100 Insulin 100 unit/mL (3 mL) insulin pen 70 unit SUBCUT BID@999,2200 RF: 0 Farxiga 10 mg tablet 10 mg PO DAILY@1000 RF: 0 Discharge Orders: Discharge Order (Routine); Ordered 10/08/20 Ordered By: Sterling Landry Referrals: Kevon Shi MD [Physician] - 4-7 days (Elevated PSA. High suspicion of prostate cancer, possible prostate biopsy) Sen Brannon MD [Primary Care Provider] - 4-7 days (adjustment of diabetic medication Work up for prostate cancer) Discharge Diet: Cardiac and Diabetic Discharge Activity: Resume usual activity Patient Instructions: Opioid Safety Activity Restrictions/Additional Instructions: Please follow-up with Dr. Shi for prostate biopsy within a week. Please follow-up with a primary care provider within next 3 days for repeat CMP and magnesium levels. Please maintain a blood sugar diary at home and follow-up with a primary care provider with the numbers. For now multiple diabetes medications have been stopped. Going forward is supposed to be only on Humalog as needed as per sliding scale premeals. Discharge Attestations Time Spent in Discharge Care*: greater than 30 min Specific Discharge Activities: educating patient, discussing with pcp/other providers, discussing with family independence case manager/social workers/dc planners, documenting/other paperwork and evaluating patient/reviewing data Status at Discharge: Cognitive status at discharge: cognitively intact, Behavioral status at discharge: cooperative, Functional status at discharge: independent ambulation Overall status at discharge: patient is back to baseline Quality Metrics Clinical Quality Measures During this hospital stay, did patient experience: None Coding Level of Care Code Acute g [facility] note Diagnoses Hypocalcemia E83.51 Hypomagnesemia E83.42 Hyperlipidemia E78.5 Hypoglycemia E16.2 Hypokalemia E87.6 Type 2 diabetes mellitus E11.9 Hypertension I10 COPD (chronic obstructive pulmonary disease) J44.9
[2020-10-08 12:03] VITALS: BP 152/84; PULSE 84; RESP 16; TEMP 37; O2SAT 96
[2020-10-08 13:07] LABS: Anti-Double Strand DNA AB <1 IU/mL; Jo-1 Antibody <1.0 NEG AI (<1.0 NEG); SM/RNP Antibodies <1.0 NEG AI (<1.0 NEG); SS-B/LA IGG <1.0 NEG AI (<1.0 NEG); Scleroderma Ab(Scl-70) Ab <1.0 NEG AI (<1.0 NEG); Ss-A/Ro Igg <1.0 NEG AI (<1.0 NEG)
[2020-10-10 12:33] LABS: Copper Level 118 mcg/dL (70-175)
[2020-10-11 22:47] LABS: PTH Related Peptide (Protein) 11 pg/mL (14-27)
[2020-10-12 19:03] LABS: Plasma Renin Activity LC/MS/MS 19.92 ng/mL/h (0.25-5.82)
[2020-10-17 12:17] LABS: Vit D 1,25 (Oh)2, Total 40 pg/mL (18-72); Vit D2 1,25 (Oh)2 40 pg/mL; Vit D3 1,25 (Oh)2 <8 pg/mL
== END 2020-10-08 13:15 | disposition home or self-care (01) | DRG 641 ==
LOC: ER 19:34 → MEDSURG 21:27
PROVIDERS: Family Medicine; Admitting Provider Internal Medicine; Emergency Provider Family Medicine; PCP Family Medicine; Visit Provider Student in an Organized Health Care Education/Training Program
DX: E83.51 Hypocalcemia (principal); E83.42 Hypomagnesemia; E11.649 Type 2 diabetes mellitus with hypoglycemia without coma; E78.5 Hyperlipidemia, unspecified; I10 Essential (primary) hypertension; J44.9 Chronic obstructive pulmonary disease, unspecified; N40.0 Benign prostatic hyperplasia without lower urinary tract symptoms; Z83.49 Family history of other endocrine, nutritional and metabolic diseases; Z80.9 Family history of malignant neoplasm, unspecified; Z79.4 Long term (current) use of insulin; Z79.82 Long term (current) use of aspirin
CPT/HCPCS: 36415; 36416; 72131; 74177; 80048; 80053; 80061; 81003; 82306; 82310; 82330; 82525; 82533; 82542; 82652; 82728; 82962; 83036; 83540; 83550; 83690; 83735; 83970; 84100; 84132; 84153; 84244; 84443; 85025; 85651; 86140; 86225; 86235; 87806; 93005; 96365; 96367; 96372; 99285; G0378; J0610; J1815; J3475; Q9967

== ENCOUNTER 2020-10-13 14:31 | Observation (INO) | payer MEDICARE, SELFPAY ==
[2020-10-13 14:40] VITALS: BP 149/77; PULSE 97; RESP 18; TEMP 36.8; O2SAT 96; BMI 32.3
--- NOTE | 2020-10-13 14:55 | ECG_ITS ---
[facility] Test Date: 2020-10-13 Pat Name: Filiberto Rosen Department: Room: Gender: Male E Learning Manager: : 1955 Requested By: Cortes Carolina Order Number: [id number] Mary MD: Arden Orta M.D. Measurements Intervals [place] Rate: 84 P: 9 UT: 165 QRS: -22 QRSD: 84 T: 38 QT: 321 QTc: 381 Interpretive Statements SINUS RHYTHM BORDERLINE LEFT AXIS DEVIATION [QRS AXIS < -20] Compared to ECG 10/06/2020 20:40:26 No significant changes Electronically Signed On 10-13-2020 16:09:57 CDT by Arden Orta M.D. [id number]
--- NOTE | 2020-10-13 15:01 | ED_ITS ---
HPI - General Adult General: Chief complaint: General Medical Stated complaint: high potassium/sent by Time Seen by Provider: 10/13/20 14:56 History of Present Illness: HPI narrative: The patient is a 65-year-old male recently admitted for COPD, hypokalemia, hypocalcemia, hypomagnesia. He says he feels fine but he was told to come to the ER urgently by his primary care physician because of elevated potassium. He had a potassium drawn earlier today and a repeat even higher than that. Also EKG in the clinic showed peaked T waves. Again in the ER he is asymptomatic and offers no complaints and is quite upset that he is here. Associated symptoms: Deny chest pain, confusion, dyspnea, headache(s), rash or palpitations Review of Systems General: Reports: 10 or more systems reviewed and unremarkable except in HPI and below Const: Denies: fatigue Eyes: Denies: change in vision, blurry vision or eye redness ENMT: Denies: throat pain, swelling of lips/tongue, ear or mastoid pain or nasal congestion Card: Denies: chest pain, palpitations, irregular heart rhythm, edema, dyspnea on exertion or orthopnea Resp: Denies: dyspnea, productive cough or non-productive cough GI: Denies: abdominal pain, diarrhea or GI cramping : Denies: flank pain, urinary frequency or urinary urgency Musc: Denies: neck pain, back pain, extremity pain, joint pain, joint redness, limited range of motion or muscle weakness Skin/Breast: Denies: rash, pruritus, erythema, skin pain or skin tenderness Neuro: Denies: headache(s), numbness in extremities, weakness in extremities, sensory changes, difficulty walking, dizziness, confusion or Slurred speech present Psych: Denies: anxiety or depression Endo: Denies: polyuria All/Imm: Denies: urticaria, throat swelling or tongue swelling [facility] ED PFSH: Medical History (Updated 10/13/20 @ 19:00 by Cortes Carolina MD) COPD (chronic obstructive pulmonary disease) Hyperlipidemia Hypertension Type 2 diabetes mellitus Physical Exam Const: COMMON NORMALS: no acute distress, average body habitus, patient oriented x3, no limitations, healthy appearing, alert and well nourished GENERAL APPEARANCE: cooperative, comfortable, well kempt and well developed ORIENTATION/CONSCIOUSNESS: Yes awake, Yes oriented to person, Yes oriented to place and Yes oriented to time HENMT: COMMON NORMALS: normocephalic, external ears normal and Normal external nose present HEAD & SCALP: normal to inspection and normocephalic NOSE: Normal external nose present EXTERNAL EAR: Yes external ears normal MOUTH: Normal oral and palatal mucosa present THROAT: posterior oropharynx normal Eye: COMMON NORMALS: Equal, round and reactive pupils present and EOMs intact bilaterally GENERAL EYE: appearance normal, both eyes and all related structures PUPIL: Yes Equal, round and reactive pupils present Neck/C-Spine: COMMON NORMALS: full ROM, no lymphadenopathy, no meningeal signs and no JVD GENERAL: Yes normal visual inspection Lymph: LYMPHATIC: no lymphadenopathy noted Chest: COMMONS NORMALS: normal inspection of the chest and normal palpation of entire chest wall Resp: COMMON NORMALS: normal respiratory effort, No retractions, No use of accessory muscles, clear to auscultation bilaterally and percussion normal EFFORT & INSPECTION: Yes able to speak in complete sentences AUSCULTATION: clear to auscultation bilaterally PERCUSSION: percussion normal Cardio: COMMON NORMALS: no JVD, regular rate, regular rhythm, S1 normal heart sound present, S2 normal heart sound present and Peripheral pulses 2+ throughout RATE: regular rate RHYTHM: regular rhythm HEART SOUNDS: S1 normal heart sound present and S2 normal heart sound present PERIPHERAL PULSES: Peripheral pulses 2+ throughout GI: COMMON NORMALS: Normal to inspection, nondistended, normoactive bowel sounds present, Soft to palpation, non-tender and no masses INSPECTION: Yes normal to inspection PALPATION: Yes Soft to palpation : COMMON NORMALS: Yes no CVA tenderness BLADDER/KIDNEY EXAM: Yes no CVA tenderness Back/Pelvis: COMMON NORMALS: no CVA tenderness, thoracic and lumbar spine normal to inspection, no thoracic nor lumbar tenderness and thoraco-lumbar ROM normal Extremity: COMMON NORMALS: normal to inspection, full ROM, capillary refill normal, no joint enlargement and no pedal edema GENERAL: Yes normal exam except as noted Neuro: COMMON NORMALS: patient oriented x3, CN's II-XII intact bilaterally, moves all extremities, no focal motor deficits, no sensory deficits noted and gait normal SENSORIUM/ORIENTATION: Yes alert, Yes oriented to person, Yes oriented to place and Yes oriented to time MENINGEAL SIGNS: Yes no meningeal signs Psych: COMMON NORMALS: mental status grossly normal, Normal thought process present, cooperative, normal affect and speech normal APPEARANCE: Yes well kempt ATTITUDE: Yes calm SPEECH: Yes normal speech THOUGHT PROCESS: Normal thought process present Skin: COMMON NORMALS: no rashes or lesions noted GENERAL SKIN EXAM: no rashes or lesions noted Course Vital Signs: Vital signs: Vital Signs Temperature 98.2 F 10/13/20 14:40 Pulse Rate 88 10/13/20 16:35 Respiratory Rate 18 10/13/20 16:35 Blood Pressure 149/77 10/13/20 14:40 Pulse Oximetry 97 10/13/20 16:35 MDM - General Adult MDM Narrative: Medical decision making narrative: Potassium on arrival 6.5. Creatinine 1.3 BUN 26. He was given a liter of fluids, an amp of D50, insulin 10 IV, calcium gluconate to stable the myocardium. EKG shows sinus rhythm with normal T wave. Discussed with Dr. Roland who accepts for admission Lab Data: Labs: Lab Results 10/13/20 10/13/20 Range/Units 15:15 15:15 WBC 6.4 (4.0-10.0) 10^3/ uL RBC 4.31 (4.1-5.3) 10^6/u L Hgb 13.1 (11.7-16.6) g/dL Hct 40.3 L (42.0-52.0) % MCV 93.5 (80-94) fL MCH 30.4 (28.0-34.0) pg MCHC 32.5 (30.0-36.0) g/dL RDW 13.8 (12.1-15.1) % Plt Count 305 (130-400) 10^3/c mm MPV 10.3 (7.4-10.4) fL Neut % (Auto) 61.0 % Lymph % (Auto) 27.5 % Runn[place] % (Auto) 6.8 % Eos % (Auto) 3.6 % Baso % (Auto) 0.8 % Neut # (Auto) 3.93 (1.8-7.7) 10^3/u L Lymph # (Auto) 1.8 (0.8-4.8) 10^3/u L Runnels # (Auto) 0.4 (0.2-0.9) 10^3/u L Eos # (Auto) 0.2 (0.0-0.8) 10^3/u L Baso # (Auto) 0.1 (0.0-0.1) 10^3/u L Nucleated RBC % (a uto) 0 % Nucleated RBCs # 0.0 /100WBC Sodium 137 (136-145) mmol/L Potassium 6.5 H* (3.5-5.1) mmol/L Chloride 104 (98-107) mmol/L Carbon Dioxide 22 (22-29) mmol/L Anion Gap 17.5 (5-19) BUN 26 H (8-23) mg/dL Creatinine 1.3 H (0.7-1.2) mg/dL GFR Calculation 55.1 L (90-130) mL/min Glucose 93 (65-115) mg/dL Calculated Osmolal ity 288 (285-295) mOsm/k g Calcium 9.8 (8.5-10.5) mg/dL Magnesium 1.6 L (1.7-2.3) mg/dL Total Bilirubin 0.5 (0.15-1.2) mg/dL AST 38 (0-40) U/L ALT 36 (0-41) U/L Alkaline Phosphata se 91 (40-130) IU/L Total Protein 9.1 H (6.6-8.7) g/dL Albumin 4.3 (3.5-5.2) g/dL Globulin 4.8 H (1.3-4.6) g/dL Discharge Plan Discharge Patient Disposition: Admitted As Inpatient Admit Provider: Gui Roland Clinical Impression: Hyperkalemia Condition: Stable Coding Level of Care Code ED Home Care Aide for Stefan Soriano
--- NOTE | 2020-10-13 15:03 | XR_ITS ---
WS: [id number] Exam: XR chest 1V portable [id number] Date/Time of Exam: 10/13/2020 3:03 PM Reason For Exam: hyperkalemia No priors. The lungs are clear and fully inflated. Normal cardiomediastinal structures. Thoracic scoliosis. No p leural effusions. Bony structures are unremarkable in appearance. XR/XR chest 1V portable [id number] IMPRESSION: 1. No acute cardiopulmonary finding.
[2020-10-13 15:23] LABS: Basophils # 0.1 10^3/uL (0.0-0.1); Basophils % 0.8 %; Eosinophils # 0.2 10^3/uL (0.0-0.8); Eosinophils % 3.6 %; Hematocrit 40.3 % (42.0-52.0); Hemoglobin 13.1 g/dL (11.7-16.6); Lymphocytes # 1.8 10^3/uL (0.8-4.8); Lymphocytes % 27.5 %; Mean Corpuscular HGB Conc 32.5 g/dL (30.0-36.0); Mean Corpuscular Hemoglobin 30.4 pg (28.0-34.0); Mean Corpuscular Volume 93.5 fL (80-94); Mean Platelet Volume 10.3 fL (7.4-10.4); Monocytes # 0.4 10^3/uL (0.2-0.9); Monocytes % 6.8 %; Neutrophils # 3.93 10^3/uL (1.8-7.7); Nucleated Red Blood Cells % 0 %; Platelet Count 305 10^3/cmm (130-400); Red Blood Count 4.31 10^6/uL (4.1-5.3); Red Cell Distribution Width 13.8 % (12.1-15.1); White Blood Count 6.4 10^3/uL (4.0-10.0)
[2020-10-13 15:40] LABS: Alanine Aminotransferase 36 U/L (0-41); Albumin Level 4.3 g/dL (3.5-5.2); Alkaline Phosphatase 91 IU/L (40-130); Anion Gap 17.5 (5-19); Aspartate Amino Transferase 38 U/L (0-40); Blood Urea Nitrogen 26 mg/dL (8-23); Calcium 9.8 mg/dL (8.5-10.5); Carbon Dioxide 22 mmol/L (22-29); Chloride 104 mmol/L (98-107); Globulin 4.8 g/dL (1.3-4.6); Glomerular Filtration Rate 55.1 mL/min (90-130); Glucose 93 mg/dL (65-115); Magnesium 1.6 mg/dL (1.7-2.3); Osmolality Calculated 288 mOsm/kg (285-295); Sodium 137 mmol/L (136-145); Total Bilirubin 0.5 mg/dL (0.15-1.2); Total Protein 9.1 g/dL (6.6-8.7)
[2020-10-13 15:44] LABS: Potassium 6.5 mmol/L (3.5-5.1)
[2020-10-13] MEDS: insulin regular-human 100 units/1 mL 10 UNIT IVP (16:15)
[2020-10-13] MEDS: dextrose 50% syringe 50 mL IVP (16:22)
[2020-10-13] MEDS: sodium chloride 0.9% 1,000 ML 999 ML IV (16:22)
[2020-10-13 16:33] LABS: Urine Appearance Clear (CLEAR); Urine Color Yellow (Yellow); pH Urine 5 (5-7)
[2020-10-13 16:34] LABS: Add Urine Microscopic? YES; Bilirubin Urine Neg (Negative); Blood Urine Neg (Negative); Glucose Urine UA 1+ (Normal); Ketones Urine Negative (Negative); Leukocyte Esterase Urine Negative (Negative); Nitrate Urine Negative (Negative); Protein Urine Trace (Negative); Specific Gravity, Urine 1.015 (1.005-1.030); Urobilinogen Urine Norm (Negative)
[2020-10-13 16:35] VITALS: PULSE 88; RESP 18; O2SAT 97
[2020-10-13 16:39] LABS: Bacteria Urine 1+ /hpf; Mucus Urine TRACE /hpf; WBC Urine 0-4 /hpf (0-5)
[2020-10-13 16:41] LABS: Squamous Epithelial Cell Urine 0-4 /hpf (0-5)
[2020-10-13 16:42] LABS: Add Urine Culture? No
--- NOTE | 2020-10-13 18:20 | PM.HP ---
Providers/Chief Complaint Admitting Physician: Gui Roland MD Primary Care Provider: Cedrick Conn MD Chief Complaint: high potassium/sent by History of Present Illness Filiberto Rosen is a 65 year old male with past medical history of hypertension, diabetes, dyslipidemia who was found to have hyperkalemia during most recent regular checkup and was sent by his PCP to emergency room recently admitted for hypocalcemia in the ER pt was given insulin, D50, IVF EKG was done pt was on K replacement he denies cp, palpitations, fevers, muscle pain Review of Systems General: Reports: 10 or more systems reviewed and unremarkable except in HPI and below Const: Denies: fever(s) or chills Eyes: Denies: change in vision or blurry vision ENMT: Denies: throat pain Card: Denies: chest pain or palpitations Resp: Denies: dyspnea GI: Denies: abdominal pain or nausea : Denies: flank pain Musc: Denies: joint pain or joint swelling Skin/Breast: Denies: rash or pruritus Neuro: Denies: headache(s) or numbness in extremities Psych: Denies: anxiety or depression Medications/Allergies Home Medications Medication Instructions Recorded Confirmed Last Taken Type Fish Oil 3,000 mg PO BID@999,219910/06/20 10/13/20 10/13/20 History Victoza 3-Abdulkadir 1.8 mg SUBCUT DAILY@222910/06/20 10/13/20 10/12/20 History amlodipine 5 mg PO DAILY@99910/06/20 10/13/20 10/13/20 History aspirin 81 mg PO DAILY@99910/06/20 10/13/20 10/13/20 History atorvastatin 80 mg PO BEDTIME@222910/06/20 10/13/20 10/12/20 History calcium carbonate 500 mg PO BID #30 tab 10/06/20 10/13/20 Unknown Rx carvedilol 12.5 mg PO BID@10/06/20 10/13/20 10/13/20 History ergocalciferol (vitamin D2) 1,250 mcg PO Q7D 10/06/20 10/13/20 10/13/20 History gemfibrozil 600 mg PO BID@999,222910/06/20 10/13/20 10/13/20 History insulin lispro [Humalog KwikPen See Rx Instructions .ROUTE .COMPLEX 10/06/20 10/13/20 10/06/20 History Insulin] loratadine [Claritin] 10 mg PO DAILY@1000 10/06/20 10/13/20 10/13/20 History magnesium oxide 400 mg PO BID #14 tab 10/06/20 10/13/20 Unknown Rx potassium chloride 20 meq PO BID@1000,2200 10/06/20 10/13/20 10/13/20 History Allergies Allergy/AdvReac Type Severity Reaction Status Date / Time No Known Allergies Allergy Verified 10/09/20 11:26 PFSH Acute PFSH: Medical History (Updated 10/13/20 @ 18:27 by Gui Roland MD) COPD (chronic obstructive pulmonary disease) Hyperlipidemia Hypertension Type 2 diabetes mellitus Vitals/I&O/Wt Last Vital Signs Temp 98.2 F 10/13/20 14:40 Pulse 88 10/13/20 16:35 Resp 18 10/13/20 16:35 BP 149/77 10/13/20 14:40 Pulse Ox 97 10/13/20 16:35 10/13/20 10/13/20 10/13/20 06:59 14:59 22:59 Intake Total 1060 / 1060 Balance 1060 / 1060 Weight last 48 hrs Weight 232 lb Physical Exam Const: COMMON NORMALS: no acute distress and average body habitus Resp: COMMON NORMALS: normal respiratory effort and No retractions Cardio: COMMON NORMALS: no JVD and regular rhythm GI: COMMON NORMALS: Soft to palpation, non-tender and no masses Extremity: COMMON NORMALS: normal to inspection and full ROM Neuro: COMMON NORMALS: patient oriented x3 and CN's II-XII intact bilaterally Psych: COMMON NORMALS: mental status grossly normal and Normal thought process present Data : 10/13/20 15:15 10/13/20 15:15 A&P Assessment and plan (1) Hyperkalemia: Status: Acute Additional A&P Information #hyperkalemia --admit to tele --recheck K --dc home K --order kayexalate --if worsens will transfer to ICU, consider renal consult #HLD --hold statin #HTN --stable --continue amlodipine #DM -fsbs, ssi DVT: ambulate Code:full Dispo:home Attestations Medical Necessity Statement*: Filiberto Rosen is being changed to inpatient status as stay will now exceed 2 midnights. Ongoing hospital care is necessary for hyperkalemia Coding Level of Care Code Acute Technology Instructor for g Bo Diagnoses Hyperkalemia E87.5
--- NOTE | 2020-10-13 18:27 | PC.NURSE ---
pt report called to Rosa YEBOAH in SBAR format.
[2020-10-13] MEDS: sodium polystyrene sulfonate 15 gm/60 mL Btl PO (19:06)
[2020-10-13] MEDS: sodium chloride 0.9% 1,000 ML 75 ML IV (19:12)
[2020-10-13 19:16] VITALS: BP 155/78; PULSE 82; RESP 17; TEMP 36.8; O2SAT 96
[2020-10-13 19:36] LABS: Potassium 6.1 mmol/L (3.5-5.1)
[2020-10-13 20:21] LABS: Glucose Point of Care 202 mg/dL (70-110)
[2020-10-13 21:10] LABS: Glucose Point of Care 249 mg/dL (70-110)
[2020-10-13] MEDS: gemfibrozil 600 mg Tablet PO (21:24)
[2020-10-13 22:00] VITALS: PULSE 80
[2020-10-13 23:09] VITALS: BP 132/76; PULSE 85; RESP 19; TEMP 36.8; O2SAT 94
[2020-10-14] MEDS: sodium polystyrene sulfonate 15 gm/60 mL Btl PO ×2 (00:04→05:41)
[2020-10-14 03:43] VITALS: BP 139/74; PULSE 77; RESP 18; TEMP 36.6; O2SAT 96
[2020-10-14 05:03] VITALS: PULSE 85
[2020-10-14 05:48] LABS: Anion Gap 14.3 (5-19); Blood Urea Nitrogen 22 mg/dL (8-23); Calcium 8.8 mg/dL (8.5-10.5); Carbon Dioxide 23 mmol/L (22-29); Chloride 105 mmol/L (98-107); Glomerular Filtration Rate 60.4 mL/min (90-130); Glucose 221 mg/dL (65-115); Osmolality Calculated 294 mOsm/kg (285-295); Potassium 5.3 mmol/L (3.5-5.1); Sodium 137 mmol/L (136-145)
[2020-10-14 06:51] LABS: Glucose Point of Care 255 mg/dL (70-110)
[2020-10-14 07:04] VITALS: BP 129/70; PULSE 80; RESP 19; TEMP 36.6; O2SAT 95
--- NOTE | 2020-10-14 08:08 | P.DS_ITS ---
Discharge Providers Date of Admission: 10/13/20 16:23 Date of Discharge: October 14, 2020 Attending Provider at Admission: Gui Roland MD Attending Provider at Discharge: Gui Rolnad MD Primary Care Provider: Cedrick Conn MD Diagnoses at Discharge Discharge Diagnosis (1) Hyperkalemia: Status: Acute (2) Hypomagnesemia: Status: Acute (3) Type 2 diabetes mellitus: Status: Acute (4) Hypertension: Status: Acute Reason for Visit Reason for Visit: high potassium/sent by Hospital Course Hospital Course Filiberto Rosen is a 65 year old male with past medical history of hypertension, diabetes, dyslipidemia who was found to have hyperkalemia during most recent regular checkup and was sent by his PCP to emergency room recently admitted for hypocalcemia in the ER pt was given insulin, D50, IVF EKG was done pt was on K replacement he denied cp, palpitations, fevers, muscle pain He was given Kayexalate. He is kept on a heart monitor. Magnesium was replaced. Prior to discharge his electrolytes were rechecked. Recommend to check a BMP in 3 days follow-up with PCP Physical Exam Const: COMMON NORMALS: no acute distress, average body habitus and patient oriented x3 Resp: COMMON NORMALS: normal respiratory effort and No retractions Cardio: COMMON NORMALS: regular rate and regular rhythm RATE: regular rate RHYTHM: regular rhythm GI: COMMON NORMALS: Soft to palpation and non-tender PALPATION: Yes Soft to palpation Extremity: COMMON NORMALS: normal to inspection and full ROM Neuro: COMMON NORMALS: patient oriented x3 and CN's II-XII intact bilaterally Psych: COMMON NORMALS: mental status grossly normal and Normal thought process present THOUGHT PROCESS: Normal thought process present Skin: COMMON NORMALS: no rashes or lesions noted and no wounds GENERAL SKIN EXAM: no rashes or lesions noted Discharge Data Data Completed and Pending: Completed Studies During Hospitalization Category Date Time Status XR chest 1V armida ble [id number] Urgent Exams 10/13/20 15:03 Completed Pending at discharge Category Date Time Status BMP [Basic Met[employer] lic Panel] Stat Lab 10/14/20 08:03 Ordered Labs from last 24 hours 10/14/20 10/14/20 10/13/20 06:40 04:50 20:52 WBC RBC Hgb Hct MCV MCH MCHC RDW Plt Count MPV Neut % (Auto) Lymph % (Auto) [place] % (Auto) Eos % (Auto) Baso % (Auto) Neut # (Auto) Lymph # (Auto) [place] # (Auto) Eos # (Auto) Baso # (Auto) Nucleated RBC % (a uto) Nucleated RBCs # Sodium 137 Potassium 5.3 H Chloride 105 Carbon Dioxide 23 Anion Gap 14.3 BUN 22 Creatinine 1.2 GFR Calculation 60.4 L Glucose 221 H POC Glucose 255 H 249 H Calculated Osmolal ity 294 Calcium 8.8 Magnesium Total Bilirubin AST ALT Alkaline Phosphata se Total Protein Albumin Globulin Urine Color Urine Appearance Urine pH Ur Specific Gravit y Urine Protein Urine Glucose (UA) Urine Ketones Urine Blood Urine Nitrate Urine Bilirubin Urine Urobilinogen Ur Leukocyte Venessa ase Urine RBC Urine WBC Ur Squamous Epith Cells Amorphous Sediment Urine Bacteria Urine Mucus Urine Yeast 10/13/20 10/13/20 10/13/20 19:06 19:02 16:24 WBC RBC Hgb Hct MCV MCH MCHC RDW Plt Count MPV Neut % (Auto) Lymph % (Auto) Mes[place] % (Auto) Eos % (Auto) Baso % (Auto) Neut # (Auto) Lymph # (Auto) [place] # (Auto) Eos # (Auto) Baso # (Auto) Nucleated RBC % (a uto) Nucleated RBCs # Sodium Potassium 6.1 H Chloride Carbon Dioxide Anion Gap BUN Creatinine GFR Calculation Glucose POC Glucose 202 H Calculated Osmolal ity Calcium Magnesium Total Bilirubin AST ALT Alkaline Phosphata se Total Protein Albumin Globulin Urine Color Yellow Urine Appearance Clear Urine pH 5 Ur Specific Gravit y 1.015 Urine Protein Trace Urine Glucose (UA) 1+ Urine Ketones Negative Urine Blood Neg Urine Nitrate Negative Urine Bilirubin Neg Urine Urobilinogen Norm Ur Leukocyte Venessa ase Negative Urine RBC None Urine WBC 0-4 H Ur Squamous Epith Cells 0-4 H Amorphous Sediment Not Reportable Urine Bacteria 1+ H Urine Mucus Trace Urine Yeast Trace 10/13/20 10/13/20 15:15 15:15 WBC 6.4 RBC 4.31 Hgb 13.1 Hct 40.3 L MCV 93.5 MCH 30.4 MCHC 32.5 RDW 13.8 Plt Count 305 MPV 10.3 Neut % (Auto) 61.0 Lymph % (Auto) 27.5 Mesa % (Auto) 6.8 Eos % (Auto) 3.6 Baso % (Auto) 0.8 Neut # (Auto) 3.93 Lymph # (Auto) 1.8 Mesa # (Auto) 0.4 Eos # (Auto) 0.2 Baso # (Auto) 0.1 Nucleated RBC % (a uto) 0 Nucleated RBCs # 0.0 Sodium 137 Potassium 6.5 H* Chloride 104 Carbon Dioxide 22 Anion Gap 17.5 BUN 26 H Creatinine 1.3 H GFR Calculation 55.1 L Glucose 93 POC Glucose Calculated Osmolal ity 288 Calcium 9.8 Magnesium 1.6 L Total Bilirubin 0.5 AST 38 ALT 36 Alkaline Phosphata se 91 Total Protein 9.1 H Albumin 4.3 Globulin 4.8 H Urine Color Urine Appearance Urine pH Ur Specific Gravit y Urine Protein Urine Glucose (UA) Urine Ketones Urine Blood Urine Nitrate Urine Bilirubin Urine Urobilinogen Ur Leukocyte Venessa ase Urine RBC Urine WBC Ur Squamous Epith Cells Amorphous Sediment Urine Bacteria Urine Mucus Urine Yeast Vitals: Last Vital Signs Temp 97.8 F 10/14/20 07:04 Pulse 80 10/14/20 07:04 Resp 19 H 10/14/20 07:04 BP 129/70 10/14/20 07:04 Pulse Ox 95 10/14/20 07:04 Discharge Plan Discharge Patient Disposition: Home Condition: Stable Prescriptions: Continued atorvastatin 80 mg tablet 80 mg PO BEDTIME@2229 RF: 0 carvedilol 12.5 mg tablet 12.5 mg PO BID@ RF: 0 aspirin 81 mg Tablet,Delayed Release (Dr/Ec) 81 mg PO DAILY@999 RF: 0 amlodipine 10 mg tablet 5 mg PO DAILY@999 RF: 0 gemfibrozil 600 mg tablet 600 mg PO BID@ RF: 0 ergocalciferol (vitamin D2) 1,250 mcg (50,000 unit) capsule 1,250 mcg PO Q7D RF: 0 loratadine [Claritin] 10 mg Tablet 10 mg PO DAILY@999 RF: 0 insulin lispro [Humalog KwikPen Insulin] 100 unit/mL insulin pen See Rx Instructions .ROUTE .COMPLEX RF: 0 Victoza 3-Abdulkadir 0.6 mg/0.1 mL (18 mg/3 mL) pen injector 1.8 mg SUBCUT DAILY@2229 RF: 0 potassium chloride 20 mEq tablet extended release 20 meq PO BID@999,2199 RF: 0 Fish Oil 3,000 mg PO BID@1000,2200 RF: 0 calcium carbonate 500 mg calcium (1,250 mg) tablet,chewable 500 mg PO BID Qty: 30 RF: 0 magnesium oxide 400 mg magnesium tablet 400 mg PO BID Qty: 14 RF: 0 Discharge Orders: Discharge Order (Routine); Ordered 10/14/20 Ordered By: Gui Roland Other Ambulatory Orders: Basic Metabolic Panel (Routine) Timeframe: 3 Days Facility: [facility] - Location: Lab - Main Lab Ordered By: Gui Roland Discharge Diet: Usual diet Patient Instructions: Opioid Safety Discharge Attestations Time Spent in Discharge Care*: less than 30 min Status at Discharge: Cognitive status at discharge: cognitively intact , Behavioral status at discharge: cooperative , Quality Metrics Clinical Quality Measures During this hospital stay, did patient experience: None Coding Level of Care Code Acute g FW CA note Exam Comprehensive Diagnoses Hyperkalemia E87.5 Hypomagnesemia E83.42 Type 2 diabetes mellitus E11.9 Hypertension I10
[2020-10-14] MEDS: magnesium oxide 400 mg tablet PO (08:22)
--- NOTE | 2020-10-14 09:25 | PC.CHAP ---
Pastoral Care Encounter/Spiritual Assessment Type of Contact [] Declined grain cleaner and transfer operator visit [] Patient/Family/Request visit [] Outpatient visit [] Follow-up visit [] Physician referral [] Code/Alert [x] Routine visit [] Staff referral [] Actively dying [] Patient sleeping [] Family support [] [] Out of room [] Palliative care [] [x] Receiving care in room [] Pre-surgical visit [] Trauma [] Long length of stay [] ICU visit [] Other: Relational/Emotional Strength [] Patient feels connected with others/family/visitors/staff [] Distress [] Loneliness/isolation [] Abandonment Spirituality of Patient [] Person of [place] [] Attends Yarsanism of their [place] [] Believes in Prayer [] Reads Bible or Anabaptism materials [] There are Spiritual issues to be addressed Faculty Research Assistant Interventions [x] Prayer [] Active listening [] Non-anxious presence [] Spiritual/emotional support [] Crisis/trauma care [] Spiritual counseling [] Bereavement support [] Provided bereavement packet [] Provided Bible/devotional materials [] Provided toy/stuffed animal, coloring book to patient or family member [] Provided Communion [] Anointing/[place] [] Salvation [x] Completed spiritual assessment [] Other: Impact on Illness or Injury [] Angry [] Fearful [] Anxious [] Often cries [] Exhaustion [] Unable to work [] Unable to attend rastafari [] Unable to walk/stand [] Unable to read [] Unable to drive [] Unable to eat/drink [] Unable to sleep [] Unable to be with family [] Patient intubated [] Other: Summary Time spent with patient
[2020-10-14 09:52] LABS: Anion Gap 14.3 (5-19); Blood Urea Nitrogen 21 mg/dL (8-23); Calcium 8.9 mg/dL (8.5-10.5); Carbon Dioxide 21 mmol/L (22-29); Chloride 104 mmol/L (98-107); Glomerular Filtration Rate 74.5 mL/min (90-130); Glucose 324 mg/dL (65-115); Osmolality Calculated 294 mOsm/kg (285-295); Potassium 5.3 mmol/L (3.5-5.1); Sodium 134 mmol/L (136-145)
[2020-10-14] MEDS: amlodipine 5 mg Tablet PO (10:01)
[2020-10-14] MEDS: aspirin 81 mg EC Tablet PO (10:01)
[2020-10-14] MEDS: gemfibrozil 600 mg Tablet PO (10:01)
[2020-10-14 12:04] VITALS: BP 129/70; PULSE 80; RESP 19; TEMP 36.6; O2SAT 95
--- NOTE | 2020-10-14 12:06 | PC.NURSE ---
Pt d/c instructions provded. pt has no questions or concerns and IV has been removed, VS stable upon departure.
--- NOTE | 2020-10-17 15:01 | PC.RESP ---
Pulmonary Rehab information sent to patient.
== END 2020-10-14 12:07 | disposition home or self-care (01) ==
LOC: ER 14:56 → CSU 17:36
PROVIDERS: Admitting Provider Internal Medicine; Emergency Provider Family Medicine; PCP Family Medicine; Visit Provider Internal Medicine
DX: E87.5 Hyperkalemia (principal); E83.42 Hypomagnesemia; Z79.4 Long term (current) use of insulin; J44.9 Chronic obstructive pulmonary disease, unspecified; E11.9 Type 2 diabetes mellitus without complications
CPT/HCPCS: 36415; 36416; 71045; 80048; 80053; 81001; 82962; 83735; 84132; 85025; 93005; 96361; 96365; 96372; 96375; 99285; G0378; J0610; J1815; J7030

== ENCOUNTER → 2020-10-22 10:01 | Outpatient (BNVA) | payer MEDICARE, SELFPAY | PROVIDERS: PCP Family Medicine; Referring Provider Student in an Organized Health Care Education/Training Program; Visit Provider Urology | DX: N20.1 Calculus of ureter (principal); N40.1 Benign prostatic hyperplasia with lower urinary tract symptoms; R97.20 Elevated prostate specific antigen [PSA] | CPT/HCPCS: 81003; 84153 ==

== ENCOUNTER → 2020-12-25 10:52 | Outpatient (BNVA) | payer MEDICARE, SELFPAY | PROVIDERS: PCP Family Medicine; Visit Provider Urology | DX: N40.1 Benign prostatic hyperplasia with lower urinary tract symptoms (principal) | CPT/HCPCS: 81003 ==

== ENCOUNTER 2021-03-26 10:30 | Outpatient (CLI) | payer MEDICARE, SELFPAY ==
--- NOTE | 2021-03-26 10:48 | CT_ITS ---
WS: [id number] CT NECK WITH CONTRAST HISTORY: LEFT MANDIBULAR MASS TECHNIQUE: Contiguous 5 mm axial images are performed through the neck with intravenous contrast. Sag ittal and coronal reformats are also submitted. All CT scans at [facility] use at least one o f these dose optimization techniques: automated exposure control; mA and/or kV adjustment per patient size (includes targeted exams where dose is matched to clinical indication); or iterative reconstruc tion. CONTRAST: CONTRAST: Omnipaque 300; 95 mL IV. DLP: 1073.78 mGycm COMPARISON: None available. Subperiosteal abscess along the LEFT lateral mandible in the area of pain. The abscess measures 3.8 x 1.6 cm and extends over a length of 2.7 cm. Abscess extends to the mandible and there is bone destru ction and loss of the cortex extending over a width of 1.0 cm. Associated with dental caries of the p remolar and first molar. There is also enlargement and increased enhancement within the LEFT sublingu al gland. Numerous foci of air within the subperiosteal abscess. Also the parotid duct is mildly infl jak and enlarged although not obstructed. Bilateral reactive lymph nodes slightly greater on the RIGHT cervical chain with the largest at level 1B measuring 8 mm in diameter. Submandibular glands are normal. No abscess extending into the submandibular space. Parotid glands ar e normal. Normal thyroid. There is mild asymmetry and increased soft tissue along the RIGHT peritonsillar bed. Opacification RIGHT maxillary sinus. Variable density within the sinus probably from infection. Lung apices are clear. CT/CT neck w con* [id number] IMPRESSION: 1. LEFT mandibular subperiosteal abscess measures 3.8 x 1.6 x 2.7 cm. Abscess e xtends to involve the LEFT sublingual gland. 2. Osteomyelitis associated with the LEFT mandibular subperiosteal abscess. Ost eomyelitis involves approximately 1.0 cm of the mandible. 3. Periapical lucency around the premolar and probably the first molar on the L EFT. Dental caries abscess site of the infection. 4. Asymmetry of the RIGHT peritonsillar bed. Recommend direct visualization to exclude early neoplasm. Notified Cedrick Conn MD at 03/26/2021 12:09 PM.
[2021-03-26 11:11] LABS: Blood Urea Nitrogen 16 mg/dL (8-23); Glomerular Filtration Rate 60.2 mL/min (90-130)
[2021-03-26] MEDS: iohexol 300 mg/mL 100 mL Btl IV (11:19)
== END 2021-03-26 10:31 | disposition home or self-care (01) ==
PROVIDERS: PCP Family Medicine; Visit Provider Family Medicine
DX: R22.0 Localized swelling, mass and lump, head (principal); M86.9 Osteomyelitis, unspecified
CPT/HCPCS: 70491; 82565; 84520; Q9967

== ENCOUNTER 2023-04-12 08:57 | Outpatient (CLI) | payer MEDICARE, SELFPAY ==
--- NOTE | 2023-04-12 09:06 | MR_ITS ---
WS: [id number] MRI LEFT KNEE NONCONTRAST TECHNIQUE: Axial PD, coronal PD fat sat, coronal PD, sagittal PD, and sagittal PD fat-sat images obta ined. CLINICAL INFORMATION: QUADRICEPS TENDON INJURY COMPARISON: None. FINDINGS: Distal quadriceps and patella tendons are intact. Hypertrophic patella. Mucoid degeneration ACL which appears intact. Normal PCL. Chronic thinning of the medial and lateral meniscus. No acute appearing meniscal tears. Moderate join t space narrowing medial and lateral joint compartments. Grade II chondromalacia. Grade 3 chondromala josue patella. No significant subchondral edema. Medial and lateral patellar retinaculum intact. Normal popliteal fossa. Small popliteal cyst. Normal medial and lateral collateral ligaments. Normal poplit eus. IMPRESSION: 1. Distal quadriceps and patella tendons are intact. Hypertrophic patella. 2. Mucoid degeneration of the ACL which appears intact. Normal PCL. 3. Chronic thinning of the medial lateral meniscus. No acute appearing meniscal tears. 4. Grade II chondromalacia medial and lateral joint compartments. 5. Grade III chondromalacia patella. 6. Tiny popliteal cyst measuring 10 mm. Outbridge grading:
== END 2023-04-12 08:58 | disposition home or self-care (01) ==
LOC: RAD 08:57
PROVIDERS: PCP Family Medicine; Visit Provider Family Medicine
DX: S76.102A Unspecified injury of left quadriceps muscle, fascia and tendon, initial encounter (principal); X58.XXXA Exposure to other specified factors, initial encounter; M89.38 Hypertrophy of bone, other site; M22.42 Chondromalacia patellae, left knee
CPT/HCPCS: 73721